=== PATIENT | male | born 1975 | race African-American/Black ===

== ENCOUNTER 2016-11-28 18:18 | Emergency (ER) | payer MEDICAID, OTHER ==
[~2016-11-28] VITALS: Ht 177.8 cm; Wt 92.0 kg
[~2016-11-28 18:18] MED LIST: BACTDS PO; CEPH-443 PO
[2016-11-28 18:39] VITALS: Ht 177.8 cm; Wt 92.0 kg
[2016-11-28] MEDS ORDERED: ACETAMINOPHEN 500 MG TAB PO STA (19:55)
[2016-11-28] MEDS ORDERED: ONDANSETRON (ODT) 4 MG TAB ODT STA (19:55)
--- NOTE | 2016-11-28 19:57 | ERD ---
ER Documentation Chief Complaint Date/Time DATE: 11/28/16 TIME: 19:56 Chief Complaint vomiting/bodyaches/fever x 1 week. HPI 41-year-old male presents to emergency department for complaints of cough, runny nose nasal congestion sore throat and vomiting bodyaches and fever for one week. Patient is complaining of dry cough, does not cough up any phlegm or blood. Patient does not have any shortness of breath or wheezing. Patient has been having runny nose, nasal congestion with clear nasal discharge. Patient only notes sore throat, burning pain, for/10 scale, is worse upon soft. Patient is also complain of body aches and vomiting. Patient has posttussive vomiting. Patient does not have any abdominal pain or diarrhea. Patient doesn't have any sick contact. Patient did not take any medications up with symptoms. ROS All systems reviewed and are negative except as per history of present illness. Medications Home Meds Active Scripts Ondansetron (Ondansetron Odt) 4 Mg Tab.rapdis, 4 MG PO Q8 Y for NAUSEA AND/OR VOMITING, #30 TAB Prov:GILBERTO SMALLS NP 11/28/16 Albuterol Sulfate* (Proair HFA*) 8.5 Gm Hfa.aer.ad, 2 PUFF INH Q4H Y for WHEEZING AND SOB, #1 INHALER Prov:GILBERTO SMALLS NP 11/28/16 Cetirizine Hcl* (Zyrtec*) 10 Mg Capsule, 10 MG PO DAILY, #30 TAB.CHEW Prov:GILBERTO SMALLS NP 11/28/16 Ysoizprjcnb-B-Tkphbbmmno Hb* (Guaifenesin* DM Syrup) 120 Ml Syrup, 10 ML PO Q4H Y for COUGH, #120 ML Prov:GILBERTO SMALLS NP 11/28/16 Ibuprofen* (Motrin*) 600 Mg Tab, 600 MG PO Q6H Y for PAIN AND OR ELEVATED TEMP, #30 TAB Prov:GILBERTO SMALLS NP 11/28/16 Cephalexin* (Keflex*) 500 Mg Capsule, 500 MG PO QID for 5 Days, CAP Prov:GILBERTO SMALLS NP 12/25/15 Sulfamethoxazole-Trimethoprim* (Bactrim* DS) 800-160 Mg Tab, 1 TAB PO BID for 7 Days, TAB Prov:CHRIS EVANGELISTA 05/24/15 Allergies Allergies: Coded Allergies: No Known Allergy (Unverified , 05/24/15) PMhx/Soc Medical and Surgical Hx: pt denies Surgical Hx History of Surgery: No Anesthesia Reaction: No Hx Neurological Disorder: No Hx Respiratory Disorders: No Hx Cardiac Disorders: No Hx Psychiatric Problems: No Hx Miscellaneous Medical Probl: Yes (Drug Use) Hx Alcohol Use: Yes Hx Substance Use: Yes Hx Tobacco Use: Yes Smoking Status: Current every day smoker FmHx Family History: No coronary disease, No diabetes, No other Physical Exam Vitals Vital Signs Date Time Temp Pulse Resp B/P Pulse Ox O2 Delivery O2 Flow Rate FiO2 11/28/16 21:21 98.3 89 20 134/85 99 11/28/16 18:39 97.7 104 20 140/95 96 Physical Exam GENERAL: The patient is well developed and appropriate for usual state of health, in no apparent distress. CHEST: Clear to auscultation bilaterally. There are no rales, wheezes or rhonchi. HEART: Regular rate and rhythm. No murmurs, clicks, rubs or gallops. No S3 or S4. ABDOMEN: Soft, nontender and nondistended. Good bowel sounds. No rebound or guarding. No gross peritonitis. No gross organomegaly or masses. No Welch sign or McBurney point tenderness. BACK: No midline or flank tenderness. EXTREMITIES: Equal pulses bilaterally. There is no peripheral clubbing, cyanosis or edema. No focal swelling or erythema. Full range of motion. Grossly neurovascularly intact. NEURO: Alert and oriented. Cranial nerves 2-12 intact. Motor strength in all 4 extremities with 5/5 strength. Sensation grossly intact. Normal speech and gait. SKIN: There is no apparent rash or petechia. The skin is warm and dry. HEMATOLOGIC AND LYMPHATIC: There is no evidence of excessive bruising or lymphedema. No gross cervical, axillary, or inguinal lymphadenopathy. Results 24 hrs Current Medications Medications (Trade) Dose Ordered Sig/Timmy Route PRN Reason Start Time Stop Time Status Last Admin Dose Admin Ibuprofen (Motrin) 600 mg ONCE ONCE PO 11/28/16 20:00 11/28/16 20:01 DC 11/28/16 20:00 Acetaminophen (Tylenol Tab) 500 mg ONCE STAT PO 11/28/16 19:55 11/28/16 19:56 DC 11/28/16 20:00 Ondansetron HCl (Zofran Odt) 4 mg ONCE STAT ODT 11/28/16 19:55 11/28/16 19:56 DC 11/28/16 20:00 Patient was given medication for pain here in emergency department, after treatment, patient verbalized feeling much better. Patient's pain is improved.Patient was given Zofran here in the emergency department. After treatment, patient was able to tolerate po fluids here in the emergency department without any vomiting. There is no signs and symptoms of dehydration. PROCEDURE: XR Chest. CLINICAL INDICATION: Cough. TECHNIQUE: Single frontal chest x-ray. COMPARISON: None. FINDINGS: The lungs are clear of acute infiltrates, edema, effusions, or masses.. The cardiomediastinal silhouette is unremarkable. The osseous structures are intact. IMPRESSION: No acute cardiopulmonary disease. RPTAT: HJPL .Heber Maya MD, MD Date Time Electronically viewed and signed by .Heber Maya MD, MD on 11/28/2016 20:29 .L/ CC: GILBERTO SMALLS REGISTERED RADIATION THERAPIST Procedures/MDM Medical Decision Making: Patient symptoms are most likely consistent with upper respiratory tract infection, which viral in origin. There is low suspicion for Pneumonia at this time since patients lungs sounds are clear, patient O2 saturation is normal and patient doesnt show any respiratory distress. Patients chest xray doesnt show infiltrates or any other cardiopulmonary emergencies at this time. There is low suspicion for other cardiopulmonary emergencies at this time such as CHF, Pulmonary Embolism, Pneumothorax, Aortic Aneurysm or any other cardiopulmonary emergencies at this time. There is low suspicion for sepsis. Patient appears well and is hemodynamically stable. Fever is controlled with medicines. Disposition: Home. Condition: Stable Prescriptions: Guaifenesin DM, Zyrtec, ibuprofen, albuterol, Zofran Instructions: Patient is advised to take medications as prescribed. Patient is advised to rest. Patient advised to increase fluid intake, do humidifier at home and if possible, do salt water gargles. Patient is advised that if symptoms are worse, shortness of breath, uncontrolled fever, stridor, vomiting, worst signs and symptoms to return to emergency department immediately. Otherwise, patient is advised to follow up with primary doctor in 5-7 days. Departure Diagnosis: Primary Impression: Upper respiratory infection URI type: unspecified viral URI Qualified Code: J06.9 - Viral upper respiratory tract infection Condition: Stable Patient Instructions: Uri, Viral, No Abx (Child) Additional Instructions: Patient is advised to take medications as prescribed. Patient is advised to rest. Patient advised to increase fluid intake, do humidifier at home and if possible, do salt water gargles. Patient is advised that if symptoms are worse, shortness of breath, uncontrolled fever, stridor, vomiting, worst signs and symptoms to return to emergency department immediately. Otherwise, patient is advised to follow up with primary doctor in 5-7 days. GILBERTO SMALLS NP Nov 28, 2016 19:57
[2016-11-28] MEDS ORDERED: IBUPROFEN 600 MG TAB PO ONE (20:00)
--- NOTE | 2016-11-28 20:30 | RADRPT ---
PROCEDURE: XR Chest. CLINICAL INDICATION: Cough. TECHNIQUE: Single frontal chest x-ray. COMPARISON: None. FINDINGS: The lungs are clear of acute infiltrates, edema, effusions, or masses.. The cardiomediastinal silho uette is unremarkable. The osseous structures are intact. IMPRESSION: No acute cardiopulmonary disease. RPTAT: HJPL .Heber Maya MD, MD Date Time Electronically viewed and signed by .Heber Maya MD, MD on 11/28/2016 20:29 .L/
[2016-11-28] MEDS ORDERED: ALBU8.5H3 INH (21:07)
[2016-11-28] MEDS ORDERED: ONDA4TAB14 PO (21:07)
[2016-11-28] MEDS ORDERED: IBUP-1542 PO (21:07)
[2016-11-28] MEDS ORDERED: GUAI120S26 PO (21:07)
[2016-11-28] MEDS ORDERED: CETI10CA PO (21:07)
[2016-11-28 21:21] VITALS: BP 134/85; PULSE 89; RESP 20; TEMP 98.3
== END 2016-11-28 21:20 | disposition home or self-care (01) ==
LOC: FTE 18:18
DX: J06.9 Acute upper respiratory infection, unspecified (principal); F17.210 Nicotine dependence, cigarettes, uncomplicated; R11.10 Vomiting, unspecified
CPT/HCPCS: 71010; Z7502; Z7610

== ENCOUNTER 2017-03-28 01:46 | Emergency (ER) | payer OTHER ==
[~2017-03-28] VITALS: Ht 177.8 cm; Wt 91.5 kg
[~2017-03-28 01:46] MED LIST changes: +ALBU8.5H3 INH; +CETI10CA PO; +GUAI120S26 PO; +IBUP-1542 PO; +ONDA4TAB14 PO
[2017-03-28 02:04] VITALS: Ht 177.8 cm; Wt 91.5 kg
[2017-03-28] MEDS ORDERED: SOD CHLORIDE 0.9% 1,000 ML IV STA (02:32)
[2017-03-28] MEDS ORDERED: ONDANSETRON 4 MG INJ IV STA (02:32)
--- NOTE | 2017-03-28 03:02 | RADRPT ---
PROCEDURE: XR Chest. CLINICAL INDICATION: Pain. TECHNIQUE: Single frontal chest x-ray. COMPARISON: 11/28/2016 FINDINGS: The cardiomediastinal silhouette is unremarkable. There is no congestive heart failure.. No focal i nfiltrate is seen. There is no pleural effusion. There is no pneumothorax. The osseous structures are unremarkable. IMPRESSION: 1. No active disease. RPTAT: HMVK .Jass Leija MD, MD Date Time Electronically viewed and signed by .Jass Leija MD, on 03/28/2017 03:01 .K/
--- NOTE | 2017-03-28 03:16 | RADRPT ---
PROCEDURE: XR Abdomen. CLINICAL INDICATION: Abdominal pain. TECHNIQUE: AP abdomen x-ray. COMPARISON: There are no similar studies submitted for comparison. FINDINGS: There is no evidence of bowel obstruction.There are no definite densities overlying the kidneys and ureters. IMPRESSION: No evidence of bowel obstruction. RPTAT: HIKT .Mario Quiles MD, MD Date Time Electronically viewed and signed by .Mario Quiles MD, MD on 03/28/2017 03:16 .T/
[2017-03-28 03:34] LABS: ADD SCAN DIFF NO
[2017-03-28 03:40] LABS: ADD UMIC YES; URINE BILIRUBIN (Dip) NEGATIVE (NEGATIVE); URINE BLOOD (Dip) TRACE (NEGATIVE); URINE COLOR LT. YELLOW (YELLOW); URINE GLUCOSE (Dip) NEGATIVE (NEGATIVE); URINE KETONES (Dip) NEGATIVE (NEGATIVE); URINE LEUKOCYTE ESTERASE (Dip) 1+ (NEGATIVE); URINE NITRITE (Dip) NEGATIVE (NEGATIVE); URINE TOTAL PROTEIN (Dip) NEGATIVE (NEGATIVE); URINE UROBILINOGEN (Dip) 0.2 E.U./dL (0.1-1.0)
[2017-03-28 03:41] LABS: BASOPHILS % 0.2 % (0.0-2.0); EOSINOPHILS # 0.1 10^3/ul (0.0-0.5); EOSINOPHILS % 2.4 % (0.0-7.0); HEMATOCRIT 44.7 % (42.0-52.0); HEMOGLOBIN 14.7 g/dl (14.0-18.0); LYMPHOCYTES # 2.4 10^3/ul (0.8-2.9); LYMPHOCYTES % 52.4 % (15.0-51.0); MEAN CORPUSCULAR HGB CONC 32.9 g/dl (32.0-37.0); MEAN CORPUSCULAR VOLUME 88.2 fl (82.0-101.0); MEAN PLATELET VOLUME 9.6 fl (7.4-10.4); MONOCYTE # 0.4 10^3/ul (0.3-0.9); MONOCYTES % 8.2 % (0.0-11.0); NEUTROPHIL # 1.7 10^3/ul (1.6-7.5); NEUTROPHILS % 36.6 % (39.0-77.0); PLATELET COUNT 264 10^3/UL (140-415); RED BLOOD COUNT 5.07 10^6/ul (4.70-6.10); RED CELL DISTRIBUTION WIDTH 13.9 % (11.5-14.5); WHITE BLOOD COUNT 4.6 10^3/ul (4.8-10.8)
[2017-03-28 03:53] LABS: ALBUMIN 3.9 g/dl (3.3-4.9); CHLORIDE 102 mmol/L (97-110); INR 0.93; PROTIME 12.5 Sec (12.2-14.2)
[2017-03-28 03:54] LABS: PARTIAL THROMBOPLASTIN TIME 22.4 Sec (25.0-35.0); POTASSIUM 3.8 mmol/L (3.5-5.1); SODIUM 142 mmol/L (135-144)
[2017-03-28 03:56] LABS: ALANINE AMINOTRANSFERASE 36 IU/L (13-69); ALBUMIN/GLOBULIN RATIO 1.34; ALKALINE PHOSPHATASE 80 IU/L (42-121); ANION GAP 15 (8-16); ASPARTATE AMINO TRANSFERASE 21 IU/L (15-46); BILIRUBIN,INDIRECT 0.1 mg/dl (0-1.1); BILIRUBIN,TOTAL 0.1 mg/dl (0.2-1.3); BLOOD UREA NITROGEN 9 mg/dl (7-20); CARBON DIOXIDE 29 mmol/L (21-31); CREATININE 0.92 mg/dl (0.61-1.24); TOTAL PROTEIN 6.8 g/dl (6.1-8.1)
[2017-03-28 03:57] LABS: CALCIUM 9.7 mg/dl (8.4-10.2); GLUCOSE 96 mg/dl (70-220)
[2017-03-28 04:13] LABS: TROPONIN-I < 0.012 ng/ml (0.00-0.12)
[2017-03-28 04:15] LABS: SQUAMOUS EPITHELIAL CELL,UR MODERATE; URINE RBCS 0-2 /HPF (0)
[2017-03-28 04:16] LABS: BACTERIA,URINE OCCASIONAL
[2017-03-28] MEDS ORDERED: SOD CHLORIDE 0.9% 1,000 ML IV ONE (04:30)
--- NOTE | 2017-03-28 05:13 | PSY ---
Date/Time of Note Date/Time of Note DATE: 03/28/17 TIME: 05:06 Psychiatric Subjective Eval Consent Pt consented to telemedicine: Yes Subjective Evaluation Patient location: emergency Chief Complaint: AP. Tried to OD with 200 pcs od Advil 2 days ago. Pt passed out after Reason for consult: suicidal attempt History of present illness patient is a 41 yo AA male living with his aunt with PPH Of bipolar do and anxiety who came to the ER due to suicdial ideation. about 3 days ago he overdosed on 200 pills of advil , went to the ER and left AMA , he came back tonight because he was feeling sick, he states that he overdosed twice this past week, he states that he has been feeling depressed, hopeless and helpless for the past few weeks due to not being able to be there for his new born baby , and having lost his home, car and job. He states that 3 months ago he did some methamphetamine and since then he has been seeing things and hearing voices telling him to hurt himself, he has also been off his geodon and wellbutrin for the past 3 months. Past psychiatric history past suicidal attempt yes Family History denies Medical history Problems Medical Problems: (1) Drug use Status: Acute (2) Encounter for removal of joaquina Status: Acute (3) Encounter for wound re-check Status: Acute (4) Infection Status: Acute (5) Upper respiratory infection Status: Acute Allergies: Coded Allergies: No Known Allergy (Unverified , 05/24/15) Substance Abuse Substance use: No known substance abuse Social History Marital status: single Level of education: DPA/Conservatorship: No Occupation/Nursing Home: unemployed Psychiatric Objective Eval Review of Systems: Review of Systems: Not Applicable Physical Examination: Physical Examination: Applicable Sleep: Insomnia Appetite: Decreased Energy: Decreased Interest: Decreased Mental Status Examination: Appearance: Disheveled Eye Contact: Good Psychomotor Activity: Normal Behavior: Cooperative Speech: Clear AFFECT: Anxious Mood: Depressed Though Process: Linear Thought Content: Hallucinations Suicidal: Yes Homicidal: No On 72 hour hold: No Orientation: x3 Cognition: Alert Insight: Impared Judgement: Impared Attention Span: Distractible Laboratory Results Laboratory Tests Test 03/28/17 02:49 White Blood Count 4.610^3/ul Red Blood Count 5.0710^6/ul Hemoglobin 14.7g/dl Hematocrit 44.7% Mean Corpuscular Volume 88.2fl Mean Corpuscular Hemoglobin 29.0pg Mean Corpuscular Hemoglobin Concent 32.9g/dl Red Cell Distribution Width 13.9% Platelet Count 13797^3/UL Mean Platelet Volume 9.6fl Neutrophils % 36.6% Lymphocytes % 52.4% Monocytes % 8.2% Eosinophils % 2.4% Basophils % 0.2% Nucleated Red Blood Cells % 0.0/100WBC Neutrophils # 1.710^3/ul Lymphocytes # 2.410^3/ul Monocytes # 0.410^3/ul Eosinophils # 0.110^3/ul Basophils # 0.010^3/ul Nucleated Red Blood Cells # 0.010^3/ul Prothrombin Time 12.5Sec Prothrombin Time Ratio 1.0 INR International Normalized Ratio 0.93 Activated Partial Thromboplast Time 22.4Sec Urine Color LT. YELLOW Urine Clarity CLEAR Urine pH 6.0 Urine Specific [place] 1.025 Urine Ketones NEGATIVE Urine Nitrite NEGATIVE Urine Bilirubin NEGATIVE Urine Urobilinogen 0.2 E.U./dL Urine Leukocyte Esterase 1+ Urine Microscopic RBC 0-2/HPF Urine Microscopic WBC 5-10/HPF Urine Squamous Epithelial Cells MODERATE Urine Amorphous Urates FEW Urine Bacteria OCCASIONAL Urine Hemoglobin TRACE Urine Glucose NEGATIVE% Urine Total Protein NEGATIVE Sodium Level 142mmol/L Potassium Level 3.8mmol/L Chloride Level 102mmol/L Carbon Dioxide Level 29mmol/L Anion Gap 15 Blood Urea Nitrogen 9mg/dl Creatinine 0.92mg/dl Glucose Level 96mg/dl Lactic Acid Level 2.3mmol/L Calcium Level 9.7mg/dl Total Bilirubin 0.1mg/dl Direct Bilirubin 0.00mg/dl Indirect Bilirubin 0.1mg/dl Aspartate Amino Transf (AST/SGOT) 21IU/L Alanine Aminotransferase (ALT/SGPT) 36IU/L Alkaline Phosphatase 80IU/L Troponin I < 0.012ng/ml Total Protein 6.8g/dl Albumin 3.9g/dl Globulin 2.90g/dl Albumin/Globulin Ratio 1.34 Lipase 85U/L Assessment and Plan Assessment/Diagnosis [place] I: psychosis nos mood do nos anxiety do nos [place] II: deferred [place] III: as per record [place] IV: poor social support [place] V: gaf 25 Recommendation/Plan Medication Management geodon 60 mg po bid first dose stat ativan 1 mg po bid first dose staf wellbutrin XL 150 mgpo qam Follow-up/Disposition Patient needs unvoluntary admission due to danger to self In my opinion, patient currently MEETS criterion for inpatient care and CANNOT be safely treated at a lower level of care today as evidenced by the following risk factors: Current Suicidal Ideation and suicidal attempts Previous suicide attempt or severe self-destructive behavior. Intense feelings of hopelessness and/or lack of future orientation. Non-Compliance with Outpatient Treatment. Command hallucinations with violent content. Chronic Pain. Significant recent DETERIORATION in function, behavior and thought processes [id number] Recommendation: Place ESTHER Ag MD March 28, 2017 05:13
--- NOTE | 2017-03-28 05:18 | ERA ---
ER Documentation Chief Complaint Date/Time DATE: 03/28/17 TIME: 05:17 Chief Complaint AP. Tried to OD with 200 pcs od Advil 2 days ago. Pt passed out after HPI This is a 41-year-old male has a history of codeine with 200 pieces of Advil 2 days ago. He says he gets worse that he wants to kill himself. He denies any fevers or chills. Denies any nausea vomiting. Denies any homicidal ideation. Denies any other current complaints. ROS All systems reviewed and are negative except as per history of present illness. Medications Home Meds Active Scripts Ondansetron (Ondansetron Odt) 4 Mg Tab.rapdis, 4 MG PO Q8 Y for NAUSEA AND/OR VOMITING, #30 TAB Prov:GILBERTO SMALLS NP 11/28/16 Albuterol Sulfate* (Proair HFA*) 8.5 Gm Hfa.aer.ad, 2 PUFF INH Q4H Y for WHEEZING AND SOB, #1 INHALER Prov:GILBERTO SMALLS NP 11/28/16 Cetirizine Hcl* (Zyrtec*) 10 Mg Capsule, 10 MG PO DAILY, #30 TAB.CHEW Prov:GILBERTO SMALLS NP 11/28/16 Ttpzbmanhmb-V-Nwczomrqcm Hb* (Guaifenesin* DM Syrup) 120 Ml Syrup, 10 ML PO Q4H Y for COUGH, #120 ML Prov:GILBERTO SMALLS NP 11/28/16 Ibuprofen* (Motrin*) 600 Mg Tab, 600 MG PO Q6H Y for PAIN AND OR ELEVATED TEMP, #30 TAB Prov:GILBERTO SMALLS NP 11/28/16 Cephalexin* (Keflex*) 500 Mg Capsule, 500 MG PO QID for 5 Days, CAP Prov:GILBERTO SMALLS NP 10/31/15 Sulfamethoxazole-Trimethoprim* (Bactrim* DS) 800-160 Mg Tab, 1 TAB PO BID for 7 Days, TAB Prov:CHRIS EVANGELISTA 05/24/15 Allergies Allergies: Coded Allergies: No Known Allergy (Unverified , 05/24/15) PMhx/Soc History of Surgery: No Anesthesia Reaction: No Hx Neurological Disorder: No Hx Respiratory Disorders: No Hx Cardiac Disorders: No Hx Psychiatric Problems: Yes (SCHIZOPHRENIA, BIPOLAR) Hx Miscellaneous Medical Probl: Yes (Drug Use) Hx Alcohol Use: Yes Hx Substance Use: Yes (METH) Hx Tobacco Use: Yes Smoking Status: Current every day smoker Physical Exam Vitals Vital Signs Date Time Temp Pulse Resp B/P Pulse Ox O2 Delivery O2 Flow Rate FiO2 03/28/17 02:04 97.6 96 20 111/74 96 Physical Exam Const: [] Head: Atraumatic Eyes: Normal Conjunctiva ENT: Normal External Ears, Nose and Mouth. Neck: Full range of motion..~ No meningismus. Resp: Clear to auscultation bilaterally Cardio: Regular rate and rhythm, no murmurs Abd: Soft, non tender, non distended. Normal bowel sounds Skin: No petechiae or rashes Back: No midline or flank tenderness Ext: No cyanosis, or edema Neur: Awake and alert Psych: Normal Mood and Affect Result Diagram: 03/28/17 0249 03/28/17 0249 Results 24 hrs Laboratory Tests Test 03/28/17 02:49 White Blood Count 4.610^3/ul Red Blood Count 5.0710^6/ul Hemoglobin 14.7g/dl Hematocrit 44.7% Mean Corpuscular Volume 88.2fl Mean Corpuscular Hemoglobin 29.0pg Mean Corpuscular Hemoglobin Concent 32.9g/dl Red Cell Distribution Width 13.9% Platelet Count 29539^3/UL Mean Platelet Volume 9.6fl Neutrophils % 36.6% Lymphocytes % 52.4% Monocytes % 8.2% Eosinophils % 2.4% Basophils % 0.2% Nucleated Red Blood Cells % 0.0/100WBC Neutrophils # 1.710^3/ul Lymphocytes # 2.410^3/ul Monocytes # 0.410^3/ul Eosinophils # 0.110^3/ul Basophils # 0.010^3/ul Nucleated Red Blood Cells # 0.010^3/ul Prothrombin Time 12.5Sec Prothrombin Time Ratio 1.0 INR International Normalized Ratio 0.93 Activated Partial Thromboplast Time 22.4Sec Urine Color LT. YELLOW Urine Clarity CLEAR Urine pH 6.0 Urine Specific [place] 1.025 Urine Ketones NEGATIVE Urine Nitrite NEGATIVE Urine Bilirubin NEGATIVE Urine Urobilinogen 0.2 E.U./dL Urine Leukocyte Esterase 1+ Urine Microscopic RBC 0-2/HPF Urine Microscopic WBC 5-10/HPF Urine Squamous Epithelial Cells MODERATE Urine Amorphous Urates FEW Urine Bacteria OCCASIONAL Urine Hemoglobin TRACE Urine Glucose NEGATIVE% Urine Total Protein NEGATIVE Sodium Level 142mmol/L Potassium Level 3.8mmol/L Chloride Level 102mmol/L Carbon Dioxide Level 29mmol/L Anion Gap 15 Blood Urea Nitrogen 9mg/dl Creatinine 0.92mg/dl Glucose Level 96mg/dl Lactic Acid Level 2.3mmol/L Calcium Level 9.7mg/dl Total Bilirubin 0.1mg/dl Direct Bilirubin 0.00mg/dl Indirect Bilirubin 0.1mg/dl Aspartate Amino Transf (AST/SGOT) 21IU/L Alanine Aminotransferase (ALT/SGPT) 36IU/L Alkaline Phosphatase 80IU/L Troponin I < 0.012ng/ml Total Protein 6.8g/dl Albumin 3.9g/dl Globulin 2.90g/dl Albumin/Globulin Ratio 1.34 Lipase 85U/L Current Medications Medications (Trade) Dose Ordered Sig/Timmy Route PRN Reason Start Time Stop Time Status Last Admin Dose Admin Sodium Chloride (NS) 1,000 ml @ 1,000 mls/hr Q1H STAT IV 03/28/17 02:32 03/28/17 03:31 DC 03/28/17 02:58 Ondansetron HCl 4 mg 4 mg ONCE STAT IV 03/28/17 02:32 03/28/17 02:34 DC 03/28/17 02:58 Sodium Chloride (NS) 1,000 ml @ 1,000 mls/hr Q1H ONCE IV 03/28/17 04:30 03/28/17 05:29 03/28/17 04:31 Procedures/MDM Patient's behavioral symptoms have stabilized while in the department. Patient is medically cleared and appropriate for psychiatric evaluation and work up. No e/o neurologic, toxic, infectious, or metabolic cause. Lactic acid of 2.3 has been treated with fluid hydration. I doubt sepsis in this case. This is likely secondary to a metabolic acidosis from ibuprofen ingestion. At this point is medically cleared. He will be transferred to [facility]. Departure Diagnosis: Primary Impression: Suicidal ideation Condition: Serious ARLENE MART March 28, 2017 05:18
[2017-03-28 20:27] VITALS: BP 106/60; PULSE 88; RESP 20; TEMP 98.1
== END 2017-03-28 20:32 ==
LOC: E/R 01:46
DX: R45.851 Suicidal ideations (principal); F17.210 Nicotine dependence, cigarettes, uncomplicated; R07.9 Chest pain, unspecified
CPT/HCPCS: 36415; 71010; 74000; 80053; 80306; 81001; 83605; 83690; 84484; 85025; 85610; 85730; 93005; 96374; J2405; J7030; Z7502; 81003

== ENCOUNTER 2017-07-07 20:43 | Emergency (ER) | payer OTHER ==
[~2017-07-07] VITALS: Ht 182.9 cm; Wt 99.0 kg
[2017-07-07 20:51] VITALS: Ht 182.9 cm; Wt 99.0 kg
[2017-07-08] MEDS ORDERED: TETRACAINE 0.5% 4 ML OPH RIGHT EYE ONE
[2017-07-08] MEDS ORDERED: HYDROCODONE/APAP (5/325) TAB PO ONE (01:00)
--- NOTE | 2017-07-08 01:21 | RADRPT ---
PROCEDURE: CT Brain without contrast. CLINICAL INDICATION: Headache and right eye vision loss. TECHNIQUE: A multiplanar CT of the brain was performed on a CT scanner utilizing axial imaging fro m the skull base through the vertex without IV contrast. The CTDIvol is 45.01 mGy and the DLP is 72 0.23 mGycm. One or more of the following dose reduction techniques were utilized: Automated exposu re control, adjustment of the mA and/or kV according to patient size, use of iterative reconstructio n technique. COMPARISON: 05/15/2015 CT brain. FINDINGS: No evidence of intracranial hemorrhage or abnormal extra-axial fluid collection. The brain parenchyma is normal attenuation morphology with preservation of harvey white differentiatio n and age appropriate size of the ventricles and subarachnoid spaces. Mild mucosal thickening in the right maxillary sinus compatible with chronic inflammatory change. The basal cisterns, posterior fossa contents, brainstem, craniocervical junction, orbits, pituitary axis, paranasal sinuses, mastoid air cells, and calvarium are unremarkable. IMPRESSION: 1. No intracranial hemorrhage or acute intracranial abnormality. MRI may be considered for further evaluation. RPTAT:AAJJ Physician Torrey Date Time Electronically viewed and signed by Physician Torrey on 07/08/2017 01:21 LUC/
--- NOTE | 2017-07-08 02:26 | RADRPT ---
PROCEDURE: ULTRASOUND RIGHT OCULAR CLINICAL INDICATION: 42-year-old male with right eye visual loss. TECHNIQUE: Limited sonographic of the right orbit was obtained were obtained utilizing harvey scale high-resolution images using a closed eye technique. The images were reviewed on a PACS workstation. COMPARISON: CT brain July 08, 2017. FINDINGS: The right globe is intact bilaterally without evidence for internal echoes or rupture. There is no evidence for retinal detachment. The jose is intact. The anterior posterior chambers are without ev idence for abnormal echogenicity. IMPRESSION: Unremarkable right ocular ultrasound. .Osmani Jamison MD, Date Time Electronically viewed and signed by .Osmani Jamison MD, MD on 07/08/2017 02:26 .Fabian/
[2017-07-08] MEDS ORDERED: NAPR-260 PO (03:16)
[2017-07-08 03:24] VITALS: BP 122/65; PULSE 71; RESP 20
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
== END 2017-07-08 03:25 | disposition home or self-care (01) ==
LOC: FTE 20:43
DX: H53.8 Other visual disturbances (principal); F17.210 Nicotine dependence, cigarettes, uncomplicated
CPT/HCPCS: 70450; 76536; Z7502; Z7610